=== PATIENT | female | born 1960 | race African-American/Black ===

== ENCOUNTER 2019-10-06 18:13 | Emergency (ER) | payer BC ==
[~2019-10-06] VITALS: Ht 175.3 cm; Wt 79.8 kg
[2019-10-06 19:24] LABS: ABSOLUTE NEUTROPHILS 13.4 thou/uL (1.4-8.2); BASOPHILS 0.7 % (0.0-2.0); EOSINOPHILS 0.1 % (0.0-3.0); HEMATOCRIT 44.5 % (37.0-47.0); HEMOGLOBIN 15.3 gm/dL (12.0-15.0); LYMPHOCYTES 7.2 % (24.0-44.0); MCH 32.9 pg (26.0-34.0); MCHC 34.3 g/dL (28.0-37.0); MCV 95.8 fL (80.0-100.0); MONOCYTES 5.7 % (1.0-8.0); PLATELET COUNT 170 thou/uL (150-400); POLYS 86.3 % (36.0-66.0); RBC 4.65 mil/uL (4.20-5.00); RDW 14.2 % (10.5-14.5); WBC 15.6 thou/uL (4.0-11.0)
[2019-10-06 19:27] LABS: ANION GAP 8 mmol/L (7-16); BUN 9 mg/dL (7-18); CALCIUM 9.2 mg/dL (8.5-10.1); CHLORIDE 97 mmol/L (98-107); CO2 26 mmol/L (21-32); CREATININE 1.1 mg/dL (0.6-1.0); GLUCOSE 115 mg/dL (74-106); POTASSIUM 3.7 mmol/L (3.5-5.1); SODIUM 131 mmol/L (136-145)
[2019-10-06 19:37] LABS: ALBUMIN 3.5 g/dL (3.4-5.0); SGOT 174 U/L (15-37); SGPT 221 U/L (30-65); TOTAL PROTEIN 8.5 g/dL (6.4-8.2); TROPONIN-I <0.06 ng/mL (<0.06)
[2019-10-06] MEDS ORDERED: VENTOLIN HFA 1818 GM INH (21:11)
[2019-10-06] MEDS ORDERED: DOXYCYCLINE 10100 MG PO (21:11)
[2019-10-06] MEDS ORDERED: PROMETH-CODEIN 65 ML PO (21:11)
[2019-10-06 21:20] VITALS: BP 132/85
== END 2019-10-06 21:20 | disposition home or self-care (01) ==
LOC: ER 18:13
PROVIDERS: Physician Assistant
DX: J18.9 Pneumonia, unspecified organism (principal); Z20.828 Contact with and (suspected) exposure to other viral communicable diseases

== ENCOUNTER → 2019-10-07 | Emergency (ER) | payer BC ==
[~2019-10-07] VITALS: Ht 167.6 cm; Wt 72.6 kg
[~2019-10-07] MED LIST: DOXYCYCLINE 10100 MG PO; PROMETH-CODEIN 65 ML PO; VENTOLIN HFA 1818 GM INH
[2019-10-07 19:55] VITALS: BP 141/68
== END ==
LOC: ER 17:43
DX: R51 Headache (principal); R50.9 Fever, unspecified; R05 Cough; R09.3 Abnormal sputum; R06.02 Shortness of breath; Z79.2 Long term (current) use of antibiotics; Z79.899 Other long term (current) drug therapy; Z87.891 Personal history of nicotine dependence